=== PATIENT | female | born 2000 | race Caucasian/White ===

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

== ENCOUNTER → 2021-03-22 | Outpatient (CLI) | payer BC ==
[~2021-03-22] MED LIST: BIRTH CONTROL MED PO; ZOLO50TA PO
[2021-03-22 17:02] LABS: FREE T4 1.02 NG/DL (0.76-1.46); HCG, SERUM QUANTITATIVE < 1.0 MIU/ML; THYROID STIMULATING HORMONE 0.974 uIU/ML (0.358-3.740)
[2021-03-23 06:42] LABS: PROLACTIN 23.8 NG/ML
== END ==
LOC: M LAB 14:59
PROVIDERS: ATTEND Obstetrics & Gynecology
DX: O92.6 Galactorrhea (principal)

== ENCOUNTER 2023-01-09 10:30 | Emergency (ER) | payer BC ==
[~2023-01-09] VITALS: Ht 142.2 cm; Wt 62.2 kg
[2023-01-09 11:10] LABS: BASO # 0.1 10^3/uL (0.0-0.2); BASO % 0.7 % (0.0-1.0); EOS # 0.2 10^3/uL (0.0-0.5); HEMATOCRIT 44.5 % (36.0-47.0); HEMOGLOBIN 15.6 g/dl (12.0-15.5); LYMPH # 2.2 10^3/uL (1.5-5.0); LYMPH % 29.1 % (24.0-44.0); MEAN CORPUSCULAR HEMOGLOBIN 29.9 pg (27.0-33.0); MEAN CORPUSCULAR HGB CONC 35.1 g/dl (32.0-36.5); MEAN CORPUSCULAR VOLUME 85.2 fl (80.0-96.0); MONO # 0.6 10^3/uL (0.0-0.8); MONO % 7.6 % (2.0-8.0); NEUTROPHILS # 4.5 10^3/uL (1.5-8.5); NEUTROPHILS % 59.2 % (36.0-66.0); PLATELET COUNT, AUTOMATED 267 10^3/uL (150-450); RED BLOOD COUNT 5.22 10^6/uL (4.00-5.40); WHITE BLOOD COUNT 7.6 10^3/uL (4.0-10.0)
[2023-01-09 11:37] LABS: LIPASE 53 U/L (12-53)
[2023-01-09 11:40] LABS: ALKALINE PHOSPHATASE 63 U/L (46-116); ALT/SGPT 50 U/L (7.0-40); AST/SGOT 32 U/L (<34); BILIRUBIN,DIRECT 0.1 MG/DL (<0.4); BILIRUBIN,TOTAL 0.3 MG/DL (0.3-1.2); BLOOD UREA NITROGEN 9 MG/DL (9-23); CALCIUM LEVEL 9.9 MG/DL (8.5-10.1); CARBON DIOXIDE LEVEL 25 MMOL/L (20-31); CHLORIDE LEVEL 108 MMOL/L (98-107); CREATININE FOR GFR 0.72 MG/DL (0.55-1.30); GLOMERULAR FILTRATION RATE > 60.0 (>60); GLUCOSE, FASTING 87 MG/DL (60-100); SODIUM LEVEL 139 MMOL/L (136-145); TOTAL PROTEIN 6.9 G/DL (5.7-8.2)
[2023-01-09 11:44] LABS: HCG, SERUM QUALITATIVE NEGATIVE (NEGATIVE)
[2023-01-09 16:19] VITALS: BP 131/77; TEMP 98.2; O2SAT 99
== END 2023-01-09 16:26 | disposition home or self-care (01) ==
LOC: M ED 10:30
DX: K80.20 Calculus of gallbladder without cholecystitis without obstruction (principal); I10 Essential (primary) hypertension; K21.9 Gastro-esophageal reflux disease without esophagitis; Z87.440 Personal history of urinary (tract) infections; Z79.3 Long term (current) use of hormonal contraceptives; Z79.899 Other long term (current) drug therapy

== ENCOUNTER → 2023-03-09 | Outpatient (CLI) | payer BC | LOC: M EKG 17:08 | PROVIDERS: ATTEND Surgery | DX: Z01.810 Encounter for preprocedural cardiovascular examination (principal); K80.20 Calculus of gallbladder without cholecystitis without obstruction ==

== ENCOUNTER → 2023-03-09 | Outpatient (CLI) | payer BC ==
[2023-03-09 18:24] LABS: BLOOD UREA NITROGEN 15 MG/DL (9-23); CALCIUM LEVEL 9.2 MG/DL (8.5-10.1); CARBON DIOXIDE LEVEL 30 MMOL/L (20-31); CHLORIDE LEVEL 104 MMOL/L (98-107); CREATININE FOR GFR 0.78 MG/DL (0.55-1.30); GLOMERULAR FILTRATION RATE > 60.0 (>60); GLUCOSE, FASTING 91 MG/DL (60-100); POTASSIUM SERUM 3.9 MMOL/L (3.5-5.1); SODIUM LEVEL 141 MMOL/L (136-145)
== END ==
LOC: M LAB 17:03
PROVIDERS: ATTEND Family Medicine
DX: I10 Essential (primary) hypertension (principal)

== ENCOUNTER → 2023-06-14 | Day surgery (SDC) | payer BC ==
[~2023-06-14] VITALS: Ht 139.7 cm; Wt 64.9 kg
[~2023-06-14] MED LIST changes: +ACETAMINOPHEN 1000MG 100ML IV BAG As Ordered ONE; +CelecoXIB 400 MG CAP PO ONE; +HYDROMORPHONE HCL 0.5 MG/ 0.5 ML SYRINGE IV PRN; +INDOCYANINE GREEN 25MG VIAL (IC-GREEN) As Ordered ONE; +INDOCYANINE GREEN 25MG VIAL (IC-GREEN) IV ONE; +KETOROLAC 60MG 2ML VIAL As Ordered ONE; +LEXA5TAB13 PO; +LIDOCAINE 1% SDV 30ML VIAL As Ordered ONE; +LIDOCAINE 2% 100MG/5ML SDV (FOR ANES.) As Ordered ONE; +LISI10TA22 PO; +LR 1,000 ML IV SCH; +METOPROLOL 5 MG/5 ML VIAL As Ordered ONE; +MIDAZOLAM INJ 2MG/2ML VIAL As Ordered ONE; +MULT-90 PO; +ONDANSETRON 4MG 2ML VIAL As Ordered ONE; +ONDANSETRON 4MG 2ML VIAL IV PRN; +ROCURONIUM BROMIDE 50MG/5ML VIAL As Ordered ONE; +SPRI28TA; +SUGAMMADEX SODIUM 500 MG/5 ML VIAL (BRIDION) As Ordered ONE; +ceFAZolin SOD 2 GM in IV 1 EA IV ONE; +fentaNYL 100 MCG/2 ML INJECTION As Ordered ONE; +fentaNYL 100 MCG/2 ML INJECTION IV PRN; +oxyCODONE 5MG TAB PO PRN; +propofoL 200 MG/20 ML VIAL As Ordered ONE
[2023-06-14 10:48] VITALS: BP 130/73; TEMP 97.9; O2SAT 96
== END | disposition home or self-care (01) ==
LOC: M SDC 06:05
PROVIDERS: ATTEND Surgery
DX: K80.10 Calculus of gallbladder with chronic cholecystitis without obstruction (principal); K66.0 Peritoneal adhesions (postprocedural) (postinfection); I10 Essential (primary) hypertension; F41.9 Anxiety disorder, unspecified; F32.A Depression, unspecified; Z79.899 Other long term (current) drug therapy; F17.290 Nicotine dependence, other tobacco product, uncomplicated
CPT/HCPCS: 47563; 64488; 81025; 88304; J0131; J0665; J0690; J1100; J1885; J2250; J2405; J3010; Q9968; S2900

== ENCOUNTER 2023-10-19 20:40 | Emergency (ER) | payer BC ==
[~2023-10-19] VITALS: Ht 141.6 cm; Wt 67.5 kg
[~2023-10-19 20:40] MED LIST changes: -ACETAMINOPHEN 1000MG 100ML IV BAG As Ordered ONE; -CelecoXIB 400 MG CAP PO ONE; -HYDROMORPHONE HCL 0.5 MG/ 0.5 ML SYRINGE IV PRN; -INDOCYANINE GREEN 25MG VIAL (IC-GREEN) As Ordered ONE; -INDOCYANINE GREEN 25MG VIAL (IC-GREEN) IV ONE; -KETOROLAC 60MG 2ML VIAL As Ordered ONE; -LIDOCAINE 1% SDV 30ML VIAL As Ordered ONE; -LIDOCAINE 2% 100MG/5ML SDV (FOR ANES.) As Ordered ONE; -LR 1,000 ML IV SCH; -METOPROLOL 5 MG/5 ML VIAL As Ordered ONE; -MIDAZOLAM INJ 2MG/2ML VIAL As Ordered ONE; -ONDANSETRON 4MG 2ML VIAL As Ordered ONE; -ONDANSETRON 4MG 2ML VIAL IV PRN; -ROCURONIUM BROMIDE 50MG/5ML VIAL As Ordered ONE; -SUGAMMADEX SODIUM 500 MG/5 ML VIAL (BRIDION) As Ordered ONE; -ceFAZolin SOD 2 GM in IV 1 EA IV ONE; -fentaNYL 100 MCG/2 ML INJECTION As Ordered ONE; -fentaNYL 100 MCG/2 ML INJECTION IV PRN; -oxyCODONE 5MG TAB PO PRN; -propofoL 200 MG/20 ML VIAL As Ordered ONE
[2023-10-19 20:41] VITALS: TEMP 97.9
[2023-10-19] MEDS ORDERED: LEXA1TAB2 PO (21:13)
[2023-10-19 21:35] LABS: BASO # 0.1 10^3/uL (0.0-0.2); BASO % 0.5 % (0.0-1.0); EOS # 0.3 10^3/uL (0.0-0.5); EOS % 3.3 % (0.0-3.0); HEMATOCRIT 39.1 % (36.0-47.0); HEMOGLOBIN 13.5 g/dl (12.0-15.5); LYMPH # 3.2 10^3/uL (1.5-5.0); LYMPH % 32.9 % (24.0-44.0); MEAN CORPUSCULAR HEMOGLOBIN 30.2 pg (27.0-33.0); MEAN CORPUSCULAR HGB CONC 34.5 g/dl (32.0-36.5); MEAN CORPUSCULAR VOLUME 87.5 fl (80.0-96.0); MONO # 0.6 10^3/uL (0.0-0.8); MONO % 5.6 % (2.0-8.0); NEUTROPHILS # 5.6 10^3/uL (1.5-8.5); NEUTROPHILS % 57.5 % (36.0-66.0); PLATELET COUNT, AUTOMATED 223 10^3/uL (150-450); RED BLOOD COUNT 4.47 10^6/uL (4.00-5.40); WHITE BLOOD COUNT 9.8 10^3/uL (4.0-10.0)
[2023-10-19 22:02] LABS: LIPASE 53 U/L (12-53)
[2023-10-19 22:04] LABS: ALBUMIN 3.7 G/DL (3.2-5.2); ALKALINE PHOSPHATASE 51 U/L (46-116); ALT/SGPT 24 U/L (7.0-40); AST/SGOT 16 U/L (<34); BILIRUBIN,DIRECT 0.1 MG/DL (<0.4); BILIRUBIN,TOTAL 0.4 MG/DL (0.3-1.2); BLOOD UREA NITROGEN 17 MG/DL (9-23); CALCIUM LEVEL 9.2 MG/DL (8.5-10.1); CARBON DIOXIDE LEVEL 24 MMOL/L (20-31); CHLORIDE LEVEL 107 MMOL/L (98-107); CREATININE FOR GFR 0.93 MG/DL (0.55-1.30); GLOMERULAR FILTRATION RATE > 60.0 (>60); GLUCOSE, FASTING 118 MG/DL (60-100); POTASSIUM SERUM 3.9 MMOL/L (3.5-5.1); SODIUM LEVEL 141 MMOL/L (136-145); TOTAL PROTEIN 6.1 G/DL (5.7-8.2)
[2023-10-19 22:12] LABS: HCG, SERUM QUALITATIVE NEGATIVE (NEGATIVE)
[2023-10-19] MEDS: KETOROLAC 30 MG/ML 1ML VIAL IV ONE (22:54)
[2023-10-19] MEDS ORDERED: KETO10TAB PO (23:53)
[2023-10-19] MEDS ORDERED: PERC5TAB12 PO (23:53)
[2023-10-19] MEDS ORDERED: FLOM0.4C39 PO (23:53)
[2023-10-19] MEDS ORDERED: ONDA4TAB6 PO (23:53)
[2023-10-19] MEDS ORDERED: CEFD1CAP9 PO (23:53)
[2023-10-20 00:10] VITALS: BP 128/76; O2SAT 99
[2023-10-20] MEDS: OXYCODONE/APAP 5MG/325MG(HOME DOSE PACK) PO ONE (00:21)
[2023-10-20] MEDS: TAMSULOSIN 0.4 MG CAP PO ONE (00:21)
[2023-10-20] MEDS: CEFDINIR 300 MG CAP (OMNICEF) PO ONE (00:21)
[2023-10-20] MEDS: ONDANSETRON 4MG ORAL DISINTEGRATING TAB PO ONE (00:21)
== END 2023-10-20 00:27 | disposition home or self-care (01) ==
LOC: M ED 20:40
DX: N20.1 Calculus of ureter (principal); I10 Essential (primary) hypertension; F41.9 Anxiety disorder, unspecified; F32.9 Major depressive disorder, single episode, unspecified; F17.200 Nicotine dependence, unspecified, uncomplicated; Z79.2 Long term (current) use of antibiotics; Z79.811 Long term (current) use of aromatase inhibitors; Z79.83 Long term (current) use of bisphosphonates; Z79.899 Other long term (current) drug therapy
CPT/HCPCS: 74176; 80048; 80076; 81001; 83690; 84703; 85025; 87086; 96374; 99284; J1885

== ENCOUNTER → 2023-11-08 | Outpatient (CLI) | payer BC ==
[~2023-11-08] MED LIST changes: +CEFD1CAP9 PO; +FLOM0.4C39 PO; +KETO10TAB PO; +LEXA1TAB2 PO; +ONDA4TAB6 PO; +PERC5TAB12 PO
[2023-11-08 18:04] LABS: APPEARANCE, URINE HAZY (CLEAR); BACTERIA, URINE AUTO NEGATIVE (NEGATIVE); BILIRUBIN, URINE AUTO NEGATIVE (NEGATIVE); BLOOD, URINE BLOOD NEGATIVE (NEGATIVE); COLOR, URINE YELLOW (YELLOW); GLUCOSE, URINE (UA) AUTO NEGATIVE (NEGATIVE); KETONE, URINE AUTO NEGATIVE (NEGATIVE); LEUKOCYTE ESTERASE, URINE AUTO NEGATIVE (NEGATIVE); MUCUS, URINE SMALL (NEGATIVE); NITRITE, URINE AUTO NEGATIVE (NEGATIVE); PROTEIN, URINE AUTO 2+ mg/dL (NEGATIVE); RBC, URINE AUTO 1 /HPF (0-3); SPECIFIC GRAVITY URINE AUTO 1.013 (1.002-1.035); SQUAMOUS EPITHELIAL CELL UR AU 1 /HPF (0-6); UROBILINOGEN, URINE AUTO 0.2 mg/dL (0.0-2.0); WBC, URINE AUTO 2 /HPF (0-3)
== END ==
LOC: M RAD 17:21
PROVIDERS: ATTEND Urology
DX: N20.1 Calculus of ureter (principal)

== ENCOUNTER → 2023-11-22 | Outpatient (CLI) | payer BC ==
[~2023-11-22] MED LIST changes: +OXYB5TAB14 PO; -SPRI28TA; +SPRI28TA PO
[2023-11-22 18:39] LABS: APPEARANCE, URINE HAZY (CLEAR); BACTERIA, URINE AUTO NEGATIVE (NEGATIVE); BILIRUBIN, URINE AUTO NEGATIVE (NEGATIVE); BLOOD, URINE BLOOD NEGATIVE (NEGATIVE); COLOR, URINE YELLOW (YELLOW); GLUCOSE, URINE (UA) AUTO NEGATIVE (NEGATIVE); KETONE, URINE AUTO NEGATIVE (NEGATIVE); LEUKOCYTE ESTERASE, URINE AUTO TRACE (NEGATIVE); MUCUS, URINE SMALL (NEGATIVE); NITRITE, URINE AUTO NEGATIVE (NEGATIVE); PROTEIN, URINE AUTO NEGATIVE (NEGATIVE); RBC, URINE AUTO 2 /HPF (0-3); SQUAMOUS EPITHELIAL CELL UR AU 1 /HPF (0-6); UROBILINOGEN, URINE AUTO 0.2 mg/dL (0.0-2.0); WBC, URINE AUTO 3 /HPF (0-3)
== END ==
LOC: M RAD 16:57
PROVIDERS: ATTEND Nurse Practitioner Family
DX: Z01.818 Encounter for other preprocedural examination (principal)

== ENCOUNTER → 2023-11-24 | Outpatient (CLI) | payer BC | LOC: M RAD 12:09 | PROVIDERS: ATTEND Nurse Practitioner Family | DX: Z01.818 Encounter for other preprocedural examination (principal) ==

== ENCOUNTER 2023-11-29 10:28 | Day surgery (SDC) | payer BC ==
[~2023-11-29] VITALS: Ht 139.7 cm; Wt 68.2 kg
[~2023-11-29 10:28] MED LIST changes: -OXYB5TAB14 PO
[2023-11-29] MEDS ORDERED: LIDOCAINE 2% 100MG/5ML SDV (FOR ANES.) As Ordered ONE (10:44)
[2023-11-29] MEDS ORDERED: ONDANSETRON 4MG 2ML VIAL As Ordered ONE (10:44)
[2023-11-29] MEDS ORDERED: propofoL 200 MG/20 ML VIAL As Ordered ONE (10:44)
[2023-11-29] MEDS ORDERED: MIDAZOLAM INJ 2MG/2ML VIAL As Ordered ONE (10:45)
[2023-11-29] MEDS ORDERED: fentaNYL 100 MCG/2 ML INJECTION As Ordered ONE (10:45)
[2023-11-29] MEDS: LR 1,000 ML IV SCH (11:18)
[2023-11-29] MEDS: ISOVUE-300 61% 100ML VIAL As Ordered ONE (11:45)
[2023-11-29] MEDS: ceFAZolin SOD 2 GM in IV 1 EA IV ONE (11:57)
[2023-11-29] MEDS ORDERED: ACETAMINOPHEN 1000MG 100ML IV BAG As Ordered ONE (12:10)
[2023-11-29] MEDS ORDERED: LR 1,000 ML IV SCH (12:35)
[2023-11-29] MEDS ORDERED: oxyCODONE 5MG TAB PO PRN (12:35)
[2023-11-29] MEDS ORDERED: fentaNYL 100 MCG/2 ML INJECTION IV PRN ×2 (12:35→12:40)
[2023-11-29] MEDS ORDERED: ONDANSETRON 4MG 2ML VIAL IV PRN (12:35)
[2023-11-29 13:25] VITALS: BP 118/81; TEMP 98.3; O2SAT 98
[2023-11-29] MEDS ORDERED: OXYB5TAB14 PO (17:27)
== END 2023-11-29 13:50 | disposition home or self-care (01) ==
LOC: M SDC 10:28
PROVIDERS: ATTEND Urology
DX: N13.2 Hydronephrosis with renal and ureteral calculous obstruction (principal); I10 Essential (primary) hypertension; Z79.899 Other long term (current) drug therapy; F32.A Depression, unspecified
CPT/HCPCS: 52356; 76000; 81025; 82365; C1769; C1894; C2617; J0131; J0690; J1100; J2250; J2405; J3010; Q9967

== ENCOUNTER 2025-01-28 13:53 | Emergency (ER) | payer OTHER, BC ==
[~2025-01-28] VITALS: Ht 142.2 cm; Wt 74.0 kg
[~2025-01-28 13:53] MED LIST changes: -FLOM0.4C39 PO; +ONDA-282 PO; -ONDA4TAB6 PO; +OXYB5TAB14 PO; +TAMS-18 PO
[2025-01-28] MEDS: BOOSTRIX VACCINE (TETANUS/DIPHTH/ACEL. PERTUSSIS) 0.5 ML SYR IM.IMMUN ONE (15:14)
[2025-01-28 15:16] VITALS: TEMP 98.7
[2025-01-28 15:23] VITALS: BP 114/69; O2SAT 98
== END 2025-01-28 15:32 | disposition home or self-care (01) ==
LOC: M ED 13:53 → EDBD 13:53 → M ED 15:32
DX: S40.811A Abrasion of right upper arm, initial encounter (principal); V43.52XA Car driver injured in collision with other type car in traffic accident, initial encounter; Y92.9 Unspecified place or not applicable; Y93.9 Activity, unspecified; Y99.9 Unspecified external cause status; Z79.899 Other long term (current) drug therapy

== ENCOUNTER → 2025-03-14 | Outpatient (CLI) | payer OTHER ==
[2025-03-14 17:41] LABS: PLATELET COUNT, AUTOMATED 216 10^3/uL (150-450)
[2025-03-14 18:00] LABS: GLUCOSE CHALLENGE TEST 1 HOUR 124 MG/DL (LESS THAN 140)
[2025-03-14 18:23] LABS: Trichomonas vaginalis (AMP) NOT DETECTED (NEGATIVE)
[2025-03-14 18:35] LABS: HIV 1&2 SCREEN NEGATIVE (NEGATIVE)
[2025-03-14 18:43] LABS: HEPATITIS C VIRUS ABY INDEX < 0.02 INDEX (<0.8)
[2025-03-14 18:47] LABS: GC DNA AMPLIFICATION NEGATIVE (NEGATIVE)
== END ==
LOC: M PLALAB 14:22
PROVIDERS: ATTEND Nurse Practitioner Family
DX: O10.012 Pre-existing essential hypertension complicating pregnancy, second trimester (principal); Z3A.00 Weeks of gestation of pregnancy not specified

== ENCOUNTER → 2025-04-28 | Outpatient (REF) | payer OTHER ==
[2025-04-28 15:42] LABS: APPEARANCE, URINE TURBID (CLEAR); BACTERIA, URINE AUTO 1+ (NEGATIVE); BILIRUBIN, URINE AUTO NEGATIVE (NEGATIVE); BLOOD, URINE BLOOD 3+ (NEGATIVE); GLUCOSE, URINE (UA) AUTO NEGATIVE (NEGATIVE); KETONE, URINE AUTO TRACE mg/dL (NEGATIVE); LEUKOCYTE ESTERASE, URINE AUTO 1+ (NEGATIVE); MUCUS, URINE SMALL (NEGATIVE); NITRITE, URINE AUTO NEGATIVE (NEGATIVE); PROTEIN, URINE AUTO 2+ mg/dL (NEGATIVE); RBC, URINE AUTO 35 /HPF (0-3); SPECIFIC GRAVITY URINE AUTO 1.021 (1.002-1.035); SQUAMOUS EPITHELIAL CELL UR AU 5 /HPF (0-6); UROBILINOGEN, URINE AUTO 2.0 mg/dL (0.0-2.0); WBC, URINE AUTO 17 /HPF (0-3)
== END ==
LOC: M SFHCWAGY 15:16
PROVIDERS: ATTEND Advanced Practice Midwife
DX: R30.0 Dysuria (principal)

== ENCOUNTER → 2025-05-02 | Outpatient (CLI) | payer OTHER | LOC: M RAD 09:57 | PROVIDERS: ATTEND Obstetrics & Gynecology | DX: I10 Essential (primary) hypertension (principal) ==

== ENCOUNTER → 2025-05-09 | Outpatient (CLI) | payer OTHER | LOC: M WHC 12:34 | PROVIDERS: ATTEND Student in an Organized Health Care Education/Training Program | DX: O10.919 Unspecified pre-existing hypertension complicating pregnancy, unspecified trimester (principal); Z3A.00 Weeks of gestation of pregnancy not specified ==

== ENCOUNTER 2025-05-14 13:13 | Inpatient (IN) | payer OTHER ==
[2025-05-14] VITALS (37 sets, daily range): BP systolic 99–162; BP diastolic 51–92
[~2025-05-14] VITALS: Ht 139.7 cm; Wt 86.5 kg
[2025-05-14] MEDS ORDERED: PRENTAB9 PO (13:32)
[2025-05-14] MEDS ORDERED: OMEP10CASR PO (13:33)
[2025-05-14] MEDS ORDERED: LABE100T40 PO (13:53)
[2025-05-14] MEDS ORDERED: LIDOCAINE 1% MDV 20 ML VIAL INFIL PRN (14:00)
[2025-05-14] MEDS ORDERED: TRANEXAMIC ACID INJection 1,000 MG in NS 100 ML IV PRN (14:00)
[2025-05-14] MEDS ORDERED: OXYTOCIN DRIP 30 UNITS in IV 1 EA IV PRN (14:00)
[2025-05-14] MEDS ORDERED: CARBOPROST TROMETHAMINE 250 MCG/ML AMP IM PRN (14:00)
[2025-05-14] MEDS ORDERED: OXYTOCIN INJ 10UNITS/ML 1ML VIAL IM PRN (14:00)
[2025-05-14] MEDS: PENICILLIN G POTASSIUM 5 MU IV 5 MU in DEXTROSE 5% (D5W) MINI-BAG PLU 100 ML IV STA (14:27)
[2025-05-14] MEDS: LR 1,000 ML IV SCH ×2 (14:27→16:24)
[2025-05-14] MEDS ORDERED: HOME MED LIST COMPLETE! XX SCH (14:30)
[2025-05-14 14:34] LABS: PLATELET COUNT, AUTOMATED 172 10^3/uL (150-450)
[2025-05-14 14:57] LABS: LDH LACTATE DEHYDROGENASE 227 U/L (120-246)
[2025-05-14 14:58] LABS: ALT/SGPT 16 U/L (7.0-40); AST/SGOT 20 U/L (<34); CREATININE FOR GFR 0.77 MG/DL (0.55-1.30); GLOMERULAR FILTRATION RATE > 90.0 (>60)
[2025-05-14] MEDS: BETAMETHASONE SOLUSPAN 6 MG/ML 5 ML VIAL IM SCH (14:59)
[2025-05-14] MEDS ORDERED: OXYTOCIN DRIP 30 UNITS in IV 1 EA IV SCH (15:05)
[2025-05-14 15:31] LABS: HIV 1&2 SCREEN NEGATIVE (NEGATIVE)
[2025-05-14 15:39] LABS: HEPATITIS C VIRUS ABY INDEX < 0.02 INDEX (<0.8)
[2025-05-14] MEDS ORDERED: diphenhydrAMINE 50 MG/ML VIAL IV PRN (16:10)
[2025-05-14] MEDS ORDERED: EPIDURAL/PCA KEYS XX PRN (16:10)
[2025-05-14] MEDS ORDERED: NALOXONE INJ 0.4 MG/1 ML VIAL IV PRN (16:10)
[2025-05-14] MEDS ORDERED: ONDANSETRON 4MG/2ML VIAL IV PRN (16:10)
[2025-05-14] MEDS: ONDANSETRON 4MG/2ML VIAL IV SCH (16:11)
[2025-05-14] MEDS: FENTANYL/ROPIVACAINE/NACL BAG 100 ML EPIDURAL SCH (16:38)
[2025-05-14] MEDS: PEN G POT 3,000,000 UNIT/50 ML 3,000,000 UNIT in IV 1 EA IV SCH (18:26)
[2025-05-14] MEDS: LABETALOL 100 MG TAB PO SCH (21:00)
[2025-05-14] MEDS: CALCIUM CARBONATE 500 MG CHEW U/D PO ONE (23:00)
[2025-05-14] MEDS: ESCITALOPRAM OXALATE 10 MG TABLET PO ONE (23:01)
[2025-05-15] VITALS (13 sets, daily range): BP systolic 103–129; BP diastolic 56–80; TEMP 98.8; O2SAT 95–98
[2025-05-15] MEDS: ceFAZolin SODIUM 2 GM in DEXTROSE 5% (D5W) ADV/MINI-BAG 50 ML IV ONE (01:05)
[2025-05-15] MEDS: BICITRA 30 ML SOLN UDC PO ONE (01:22)
[2025-05-15] MEDS: AZITHROMYCIN INJ 500 MG, VIAL MATE ADAPTER 1 EACH in NS 250 ML IV ONE (01:23)
[2025-05-15] MEDS ORDERED: MORPHINE PRES-FREE INJ 10 MG/10 ML VIAL As Ordered ONE (01:47)
[2025-05-15] MEDS ORDERED: ONDANSETRON 4MG/2ML VIAL As Ordered ONE (01:49)
[2025-05-15] MEDS ORDERED: KETOROLAC 30 MG/ML 1 ML VIAL As Ordered ONE (01:49)
[2025-05-15] MEDS ORDERED: OXYTOCIN 30UNITS IN 0.9% NaCl 500ML IV BAG IV ONE (02:08)
[2025-05-15] MEDS ORDERED: LIDOCAINE 2% W/EPINEPHrine 20 ML VIAL **PRES FREE As Ordered ONE (02:08)
[2025-05-15 02:12] LABS: CORD GAS ABE V -9.1; CORD GAS HCO3 V 18.1 MMOL/L; CORD GAS O2 SAT V 63.4 %; CORD GAS PCO2 V 43.8 mmHg; CORD GAS PH V 7.234 UNITS; CORD GAS PO2 V 27.9 mmHg; CORD GAS SBC V 16.6 MMOL/L; CORD GAS TCO2 V 19.4 MMOL/L
[2025-05-15 02:13] LABS: CORD GAS ABE A -10.9; CORD GAS HCO3 A 17.8 MMOL/L; CORD GAS O2 SAT A 70.3 %; CORD GAS PCO2 A 50.1 mmHg; CORD GAS PH A 7.168 UNITS; CORD GAS PO2 A 36.5 mmHg; CORD GAS SBC A 15.5 MMOL/L; CORD GAS TCO2 A 19.3 MMOL/L
[2025-05-15] MEDS ORDERED: PROMETHAZINE 25 MG TAB PO PRN (02:20)
[2025-05-15] MEDS: OXYTOCIN DRIP 30 UNITS in IV 1 EA IV SCH (02:20)
[2025-05-15] MEDS ORDERED: SIMETHICONE 80MG CHEW TAB PO PRN (02:20)
[2025-05-15] MEDS ORDERED: RHOGAM 300MCG (1500IU) INJ IM SCH (02:20)
[2025-05-15] MEDS ORDERED: PERCOCET 5MG/325MG TAB PO PRN ×2 (02:20)
[2025-05-15] MEDS ORDERED: MOM 30 ML SUSPENSION UDC PO PRN (02:20)
[2025-05-15] MEDS ORDERED: METHYLERGONOVINE MALEATE 0.2 MG TAB PO PRN (02:20)
[2025-05-15] MEDS ORDERED: **NOTE PATIENT COMMENT** MISC XX SCH (02:55)
[2025-05-15] MEDS ORDERED: NALOXONE INJ 0.4 MG/1 ML VIAL IV PRN ×2 (02:55)
[2025-05-15] MEDS ORDERED: LR 1,000 ML IV SCH (02:55)
[2025-05-15] MEDS ORDERED: ONDANSETRON 4MG/2ML VIAL IV PRN (02:55)
[2025-05-15] MEDS: SLF 3 ML SYR IV SCH (02:55)
[2025-05-15] MEDS: diphenhydrAMINE 50 MG/ML VIAL IV PRN (05:40)
[2025-05-15] MEDS: PRENATAL VITAMINS CHEWABLE TABLET PO SCH (09:00)
[2025-05-15] MEDS: DOCUSATE SODIUM 100 MG CAPSULE PO SCH (09:00)
[2025-05-15] MEDS: LABETALOL 100 MG TAB PO SCH (09:11)
[2025-05-15] MEDS: KETOROLAC 30 MG/ML 1 ML VIAL IV SCH (09:11)
[2025-05-15] MEDS: ESCITALOPRAM OXALATE 10 MG TABLET PO SCH (21:09)
[2025-05-16 02:01] VITALS: BP 107/61; O2SAT 99
[2025-05-16] MEDS: IBUPROFEN 800 MG TAB PO SCH (05:15)
[2025-05-16 06:00] VITALS: BP 119/74; O2SAT 97
[2025-05-16 08:57] LABS: PLATELET COUNT, AUTOMATED 167 10^3/uL (150-450)
[2025-05-16 10:00] VITALS: BP 125/60; O2SAT 100
[2025-05-16 18:26] VITALS: BP 144/88; O2SAT 98
[2025-05-16 20:00] VITALS: BP 133/84
[2025-05-16] MEDS ORDERED: ACETAMINOPHEN 500 MG TAB PO PRN (20:00)
[2025-05-16 22:07] VITALS: BP 127/83; O2SAT 97
[2025-05-17] VITALS (9 sets, daily range): BP systolic 107–138; BP diastolic 58–95; O2SAT 95–99
[2025-05-17] MEDS: MEASLES,MUMPS,RUBELLA VACCINE INJ (MMR-II) SC.IMMUN ONE (08:12)
[2025-05-17] MEDS ORDERED: COLA100C5 PO (12:24)
[2025-05-17] MEDS ORDERED: IBUP80TA PO (12:24)
[2025-05-17] MEDS ORDERED: ACET-683 PO (12:24)
[2025-05-17] MEDS ORDERED: PERCOCET PO (12:24)
[2025-05-17] MEDS ORDERED: FERR325T3 PO (12:27)
[2025-05-17] MEDS: IRON SUCROSE 100 MG/5 ML VIAL IV ONE (15:36)
[2025-05-17] MEDS: FLUZONE VACCINE TRI PF(25-26) 0.5ML SYRINGE IM.IMMUN ONE (16:57)
== END 2025-05-17 17:32 | disposition home or self-care (01) | DRG 540 ==
LOC: M LDO 13:13 → M LDI 14:06 → M OBS 05-15 04:50
PROVIDERS: ADMIT Advanced Practice Midwife; ATTEND Obstetrics & Gynecology
PROC: 10D00Z1 Extraction of Products of Conception, Low, Open Approach (ICD-10-PCS; principal; 2025-05-15 01:07)
DX: O42.013 Preterm premature rupture of membranes, onset of labor within 24 hours of rupture, third trimester (principal); Z37.0 Single live birth; Z3A.35 35 weeks gestation of pregnancy; O10.02 Pre-existing essential hypertension complicating childbirth; O99.824 Streptococcus B carrier state complicating childbirth; O76 Abnormality in fetal heart rate and rhythm complicating labor and delivery